=== PATIENT | female | born 1945 | race Caucasian/White ===

== ENCOUNTER 2018-06-12 22:21 | Emergency (ER) | payer MEDICARE, BC ==
[~2018-06-12] VITALS: Ht 160 cm; Wt 59.0 kg
[~2018-06-12 22:21] MED LIST: ADVAIR 250-501 EACH INH; ADVAIR HFA115 MCG/21 INH; ALBUTEROL INH; ALBUTEROL NEB; ALBUTEROL2.5 MG/0.5 INH; ALLEGRA ALLERG180 MG PO; ALLEGRA ALLERGY60 MG PO; APAP500 PO; ATORVASTATIN CA40 MG PO; AUGMENTIN 875875 MG PO; BUMETANIDE 1 MG1 M1 PO; CALCIUM + D SO1 EACH PO; CALCIUM + VITA1 EACH PO; CEFTIN 250 MG250 MG PO; COUMADIN 4 MG TA4 M1 PO; COUMADIN 5 MG TA5 M1 PO; DILTIAZEM 24HR120 M1 PO; DILTIAZEM ER360 MG; DILTIAZEM HCL120 M1 PO; DUONEB 2.5-0.5 M3 ML; DUONEB 2.5-0.5 M3 ML INH; FISH OIL 1,0001 EAC6 PO; FISH OIL 1,001000 M1 PO; FLONASE 0.05%50 MCG NASAL; FOSAMAX 70 MG T70 MG PO; FUROSEMIDE 40 M40 M1 PO; HYDROCHLOROTHIA25 M1 PO; IRON325 PO; K-DUR10 MEQ PO; LASIX 40 MG TAB40 M2 PO; LEVAQUIN 250 M250 MG PO; LEVAQUIN 500 M500 M2 PO; LISINOPRIL5 MG PO; MUCINEX TA600 MG/TA2 PO; MUCINEX600 MG PO; OMEGA-31000 M1 PO; POTASSIUM20 MEQ/15 PO; PREDNISONE 10 M10 M1 PO; PREDNISONE 10 M10 MG PO; PREDNISONE 20 M20 MG PO; PREDNISONE 5 MG5 M1; PROTONIX40 M1 PO; SIMVASTATIN40 MG; SINGULAIR 10 MG10 M1 PO; SPIRIVA INH; SYMBICORT160 MCG/4. INH; TRAMADOL 50 MG50 MG PO; VENTOLIN HFA INH8 GM INH; VITAMINC500 PO; ZITHROMAX250 MG NG; ZPAK PO
[2018-06-13] MEDS ORDERED: NORCO 5-325 TA1 EACH PO (00:06)
[2018-06-13 00:24] VITALS: BP 190/70
== END 2018-06-13 00:25 | disposition home or self-care (01) ==
LOC: M.ERS 22:21
DX: S42.291A Other displaced fracture of upper end of right humerus, initial encounter for closed fracture (principal); I10 Essential (primary) hypertension; J44.9 Chronic obstructive pulmonary disease, unspecified; Z90.49 Acquired absence of other specified parts of digestive tract; Z91.09 Other allergy status, other than to drugs and biological substances; Z87.891 Personal history of nicotine dependence; W01.0XXA Fall on same level from slipping, tripping and stumbling without subsequent striking against object, initial encounter; Y93.89 Activity, other specified; Y92.89 Other specified places as the place of occurrence of the external cause; Y99.8 Other external cause status

== ENCOUNTER 2018-06-17 04:13 | Inpatient (IN) | payer MEDICARE, BC ==
[~2018-06-17] VITALS: Ht 162.6 cm; Wt 61.2 kg
[~2018-06-17 04:13] MED LIST changes: +NORCO 5-325 TA1 EACH PO
[2018-06-17 04:19] VITALS: BP 156/58
[2018-06-17] MEDS ORDERED: SPIRIVA INH (04:30)
[2018-06-17] MEDS ORDERED: HIGH POTENCY I134 MG PO (04:31)
[2018-06-17 04:51] LABS: HEMATOCRIT 27.9 % (37.0-47.0); HEMOGLOBIN 9.4 gm/dL (12.0-15.0); MCH 31.5 pg (26.0-34.0); MCHC 33.8 g/dL (28.0-37.0); MCV 93.3 fL (80.0-100.0); MPV 7.8 fl. (7.2-11.1); NUCLEATED RBCS 0 /100WBC; PLATELET COUNT* 208 thou/uL (150-400); RBC 2.99 mil/uL (4.20-5.00); RDW-CV 14.7 % (10.5-14.5); WBC 12.7 thou/uL (4.0-11.0)
[2018-06-17 05:07] LABS: ANION GAP 7 mmol/L (7-16); BUN 18 mg/dL (7-18); CALCIUM 8.6 mg/dL (8.5-10.1); CHLORIDE 101 mmol/L (98-107); CO2 30 mmol/L (21-32); CREATININE 1.1 mg/dL (0.6-1.3); GLUCOSE 116 mg/dL (70-99); POTASSIUM 3.7 mmol/L (3.5-5.1); SODIUM 138 mmol/L (136-145)
[2018-06-17 05:08] LABS: PROTIME 10.6 Seconds (9.20-11.50)
[2018-06-17 05:17] LABS: ALBUMIN 2.9 g/dL (3.4-5.0); ALKALINE PHOSPHATASE 75 U/L (46-116); NT-PRO BRAIN NAT PEPTIDE 254 pg/mL (<300); SGOT 19 U/L (15-37); SGPT 24 U/L (30-65); TOTAL BILIRUBIN 0.5 mg/dL (<0.1-1.0); TOTAL PROTEIN 6.4 g/dL (6.4-8.2); TROPONIN-I LEVEL <0.06 ng/mL (<0.06)
[2018-06-17 06:31] LABS: ABSOLUTE LYMPHOCYTES 1.1 thou/uL (0.8-5.3); ABSOLUTE MONOCYTES 0.3 thou/uL (0.0-1.2); ABSOLUTE NEUTROPHILS 11.3 thou/uL (1.6-8.1); ATYPICAL LYMPHS 3 %; PLATELET ESTIMATE ADEQUATE
[2018-06-17 06:41] VITALS: BP 181/67
[2018-06-17 07:00] VITALS: BP 171/65
[2018-06-17 07:55] VITALS: BP 166/66
[2018-06-17 14:00] VITALS: BP 173/68
--- NOTE | 2018-06-17 17:09 | EKG ---
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 : 1945 Requested By: Daysi Solorio Order Number: [id number] MD: Chon Ghotra Measurements Intervals [place] Rate: 98 P: 79 VT: 167 QRS: 67 QRSD: 87 T: 65 QT: 347 QTc: 444 Interpretive Statements Sinus rhythm poor wave progression Left ventricular hypertrophy Compared to ECG 04/05/2016 01:14:20 Right ventricular hypertrophy now present Left ventricular hypertrophy now present Sinus tachycardia no longer present ST (T wave) deviation no longer present Electronically Signed On 06-17-2018 17:08:44 CDT by Chon Ghotra [email or web address] <ELECTRONICALLY SIGNED> By: Chon Ghotra MD, [facility] 06/17/18 1708 0428 0428 Chon Ghotra MD, [facility] /EPI
[2018-06-17 18:02] LABS: URINE BILIRUBIN NEGATIVE (Negative); URINE BLOOD TRACE (Negative); URINE CLARITY CLEAR; URINE COLOR YELLOW; URINE GLUCOSE-RANDOM NEGATIVE (Negative); URINE KETONES NEGATIVE (Negative); URINE LEUKOCYTES-REFLEX NEGATIVE (Negative); URINE NITRITE-REFLEX NEGATIVE (Negative); URINE PROTEIN NEGATIVE (Negative); URINE SPECIFIC GRAVITY <= 1.005 (1.005-1.030); URINE UROBILINOGEN 0.2 E.U./dl (0.2-1.0)
[2018-06-17 20:25] VITALS: BP 166/63
[2018-06-18 04:20] LABS: ABSOLUTE EOSINOPHILS 0.1 thou/uL (0.0-0.7); ABSOLUTE LYMPHOCYTES 1.1 thou/uL (0.8-5.3); BASOPHILS 0.3 %; EOSINOPHILS 0.7 %; HEMATOCRIT 26.5 % (37.0-47.0); LYMPHOCYTES 10.4 %; MCH 31.8 pg (26.0-34.0); MCHC 34.1 g/dL (28.0-37.0); MCV 93.3 fL (80.0-100.0); MPV 8.1 fl. (7.2-11.1); NUCLEATED RBCS 0 /100WBC; PLATELET COUNT* 189 thou/uL (150-400); POLYS 78.6 %; RBC 2.84 mil/uL (4.20-5.00); RDW-CV 14.5 % (10.5-14.5); WBC 10.1 thou/uL (4.0-11.0)
[2018-06-18 04:40] LABS: CALCIUM 7.9 mg/dL (8.5-10.1); CREATININE 0.9 mg/dL (0.6-1.3); POTASSIUM 3.4 mmol/L (3.5-5.1)
[2018-06-18 07:30] VITALS: BP 106/67
[2018-06-18 14:00] VITALS: BP 183/72
[2018-06-18 15:00] VITALS: BP 180/73
[2018-06-18 20:00] VITALS: BP 170/58
[2018-06-19 00:14] VITALS: BP 161/61
[2018-06-19 04:00] VITALS: BP 164/62
[2018-06-19 04:28] LABS: ABSOLUTE EOSINOPHILS 0.1 thou/uL (0.0-0.7); ABSOLUTE LYMPHOCYTES 0.9 thou/uL (0.8-5.3); ABSOLUTE MONOCYTES 0.8 thou/uL (0.0-1.2); BASOPHILS 0.6 %; EOSINOPHILS 1.1 %; HEMATOCRIT 26.5 % (37.0-47.0); MCH 31.9 pg (26.0-34.0); MCHC 33.9 g/dL (28.0-37.0); MCV 94.1 fL (80.0-100.0); MONOCYTES 9.9 %; NUCLEATED RBCS 0 /100WBC; PLATELET COUNT* 196 thou/uL (150-400); POLYS 77.4 %; RBC 2.82 mil/uL (4.20-5.00); RDW-CV 14.6 % (10.5-14.5); WBC 7.7 thou/uL (4.0-11.0)
[2018-06-19 04:37] LABS: ALBUMIN 2.2 g/dL (3.4-5.0); CALCIUM 8.1 mg/dL (8.5-10.1); CREATININE 0.9 mg/dL (0.6-1.3); POTASSIUM 3.6 mmol/L (3.5-5.1); TOTAL BILIRUBIN 0.5 mg/dL (<0.1-1.0); TOTAL PROTEIN 4.9 g/dL (6.4-8.2)
[2018-06-19 07:51] VITALS: BP 158/58
[2018-06-19] MEDS ORDERED: AUGMENTIN 875-1 EACH PO (10:52)
[2018-06-19] MEDS ORDERED: HYDROCODON-ACE1 EAC7 PO (10:54)
[2018-06-19 11:22] VITALS: BP 158/58
== END 2018-06-19 12:45 | disposition home health service (06) | DRG 542 ==
LOC: M.ERS 04:13 → M.ORTHSURG 06:29 → M.TBA-ER 06:29 → M.ORTHSURG 06:45
PROVIDERS: Emergency Medicine; Internal Medicine; ADMIT Internal Medicine
DX: M80.021A Age-related osteoporosis with current pathological fracture, right humerus, initial encounter for fracture (principal); J15.6 Pneumonia due to other Gram-negative bacteria; R65.10 Systemic inflammatory response syndrome (SIRS) of non-infectious origin without acute organ dysfunction; J98.11 Atelectasis; D62 Acute posthemorrhagic anemia; I10 Essential (primary) hypertension; J44.9 Chronic obstructive pulmonary disease, unspecified; W18.39XA Other fall on same level, initial encounter; Y93.89 Activity, other specified; Y92.89 Other specified places as the place of occurrence of the external cause; Y99.8 Other external cause status; Z87.891 Personal history of nicotine dependence; Z90.49 Acquired absence of other specified parts of digestive tract; Z99.81 Dependence on supplemental oxygen; Z86.711 Personal history of pulmonary embolism; Z79.51 Long term (current) use of inhaled steroids; Z79.899 Other long term (current) drug therapy; Z91.09 Other allergy status, other than to drugs and biological substances

== ENCOUNTER 2018-07-30 14:37 | Inpatient (IN) | payer MEDICARE, BC ==
[~2018-07-30] VITALS: Ht 162.6 cm; Wt 56.7 kg
--- NOTE | ~2018-07-30 | OP ---
[address] [address] OPERATIVE REPORT Name: KAMRON RIVERA Room: [address] IN M.R.#: [id number] Admission: 07/30/18 Attend Phys: Thea Bethea Discharge: Date of : 45 Report #: [id number] THIS REPORT FOR: //name// CC: Cohn Aleman DATE OF SERVICE: 08/01/2018 PREOPERATIVE DIAGNOSIS: Cholecystitis. POSTOPERATIVE DIAGNOSES: Cholecystitis and cholelithiasis. SURGEON: Andrew Albrecht DO ASSISTANTS: Rayshawn Montoya, PGY-3, Jamila Robison, PGY-1. OPERATION PERFORMED: Laparoscopic cholecystectomy. ANESTHESIA: GET. ESTIMATED BLOOD LOSS: 30 mL. SPECIMEN REMOVED: Gallbladder. COMPLICATIONS: None. INDICATIONS: The patient is a 73-year-old female that presented to the ED with complaints of right upper quadrant pain, nausea and vomiting. She was found to have a HIDA scan with an ejection fraction of the gallbladder 14% in February of last year. She continued to have postprandial pain that was now related to any kind of food intake. Ultrasound showed a gallbladder mass or debris that could represent sludge. She was informed of the risks and benefits of proceeding with laparoscopic cholecystectomy and decided to proceed preoperatively. Pulmonary was consulted to risk stratify the patient given her COPD and oxygen dependence. DESCRIPTION OF PROCEDURE: After informed consent was obtained, the patient was brought to the operating room and placed in the supine position. SCDs were applied. Preoperative antibiotics were given. General anesthesia was administered. The patient was prepped and draped in the usual sterile fashion. A surgical pause was held to confirm proper patient and procedure. A 2 cm vertical infraumbilical incision was made with an 11 blade. Dissection was carried down to the fascia using cautery. The fascia was incised with cautery and then elevated with 2 Kochers. A Raya was used to enter the peritoneum and 0 Vic[address] was used to place stay sutures on the superior and inferior aspects of the fascial incision. A 5 mm Denis trocar was then [place] [address] OPERATIVE REPORT Name: KAMRON RIVERA Room: [address] IN .R.#: [id number] Admission: 07/30/18 Attend Phys: Thea Bethea Discharge: Date of : 45 Report #: [id number] and the balloon was insufflated. The abdomen was then insufflated. The camera was introduced. The gallbladder was visualized. The patient was positioned head up and rotated to the left. A 5 mm epigastric port was introduced under direct visualization and then two right upper quadrant trocars were introduced under direct visualization. The gallbladder was then elevated. There were some adhesions to the omentum and to the stomach. These were taken down with a combination of [place] dissector and with cautery with care to stay high on the gallbladder and away from the stomach. Once these were down, the peritoneum overlying the lateral edge of the gallbladder was dissected and the peritoneum overlying the medial side was dissected. The cystic duct and cystic artery were carefully dissected. The common bile duct and common hepatic duct were easily visualized and the critical view of safety was confirmed with two and only two structures entering the gallbladder and the liver easily visible behind them. The cystic duct was doubly clipped proximal and singly clipped distal. The artery was clipped using Weck Hem-o-teresa clips on both the duct and the artery. These were then cut using laparoscopic scissors. Gallbladder was elevated and dissected free of the liver bed using cautery. Two small holes were placed in the gallbladder. The suction inspector floor sub assembly was used to suction the bile and debris including stones and irrigate. Once the gallbladder was completely free of the liver bed, it was placed in an EndoCatch bag. The liver bed was then carefully suctioned and cauterized to achieve hemostasis. This was deemed adequate. The right upper quadrant was then thoroughly irrigated and suctioned. The abdomen was then desufflated. All ports were removed under direct visualization. The gallbladder was removed in its EndoCatch bag through the umbilical port. The previous stay sutures were elevated. Two additional waxxzb-dx-xdsuj sutures with 0 Vicryl were placed at the fascia. The previous stay sutures were tied down. Skin at all 4 sites were closed with 4-0 Monocryl. Wounds were cleansed and dressed with Mastisol, Steri-Strips, and a Tegaderm with overlying pressure dressing. All counts were correct at the close of the case. The patient tolerated the procedure well and was transferred to the PACU and subsequently to the floor in stable condition. By: 1557 [id number] Montoya DO /ashleigh
[~2018-07-30 14:37] MED LIST changes: +AUGMENTIN 875-1 EACH PO; +HIGH POTENCY I134 MG PO; +HYDROCODON-ACE1 EAC7 PO
[2018-07-30 14:49] VITALS: BP 168/52
[2018-07-30 15:03] LABS: HEMATOCRIT 34.1 % (37.0-47.0); HEMOGLOBIN 11.5 gm/dL (12.0-15.0); MCH 30.1 pg (26.0-34.0); MCHC 33.7 g/dL (28.0-37.0); MCV 89.2 fL (80.0-100.0); MPV 7.7 fl. (7.2-11.1); NUCLEATED RBCS 0 /100WBC; PLATELET COUNT* 235 thou/uL (150-400); RBC 3.83 mil/uL (4.20-5.00); RDW-CV 14.7 % (10.5-14.5); WBC 9.8 thou/uL (4.0-11.0)
[2018-07-30 15:10] LABS: ANION GAP 5 mmol/L (7-16); BUN 22 mg/dL (7-18); CALCIUM 9.2 mg/dL (8.5-10.1); CHLORIDE 103 mmol/L (98-107); CO2 29 mmol/L (21-32); CREATININE 0.9 mg/dL (0.6-1.3); GLUCOSE 123 mg/dL (70-99); POTASSIUM 4.4 mmol/L (3.5-5.1); SODIUM 137 mmol/L (136-145)
[2018-07-30 15:16] LABS: URINE BILIRUBIN NEGATIVE (Negative); URINE BLOOD NEGATIVE (Negative); URINE CLARITY CLEAR; URINE COLOR YELLOW; URINE GLUCOSE-RANDOM NEGATIVE (Negative); URINE KETONES NEGATIVE (Negative); URINE LEUKOCYTES-REFLEX NEGATIVE (Negative); URINE NITRITE-REFLEX NEGATIVE (Negative); URINE PROTEIN NEGATIVE (Negative); URINE SPECIFIC GRAVITY 1.015 (1.005-1.030); URINE UROBILINOGEN 0.2 E.U./dl (0.2-1.0)
[2018-07-30 15:17] LABS: ALBUMIN 3.7 g/dL (3.4-5.0); ALKALINE PHOSPHATASE 84 U/L (46-116); LIPASE 156 U/L (73-393); SGOT 13 U/L (15-37); SGPT 18 U/L (30-65); TOTAL BILIRUBIN 0.3 mg/dL (<0.1-1.0); TOTAL PROTEIN 6.7 g/dL (6.4-8.2); TROPONIN-I LEVEL <0.06 ng/mL (<0.06)
[2018-07-30 15:40] LABS: ABSOLUTE EOSINOPHILS 0.1 thou/uL (0.0-0.7); ABSOLUTE LYMPHOCYTES 1.1 thou/uL (0.8-5.3); ABSOLUTE MONOCYTES 0.5 thou/uL (0.0-1.2); ABSOLUTE NEUTROPHILS 8.1 thou/uL (1.6-8.1); PLATELET ESTIMATE ADEQUATE
[2018-07-30 18:01] VITALS: BP 144/59
[2018-07-30 18:31] VITALS: BP 150/62
[2018-07-30 20:00] VITALS: BP 151/56
[2018-07-31 08:05] VITALS: BP 143/66
--- NOTE | 2018-07-31 12:35 | EKG ---
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1945 Requested By: Gilberto Mello Order Number: [id number] MD: Stewart Deleon Measurements Intervals [place] Rate: 64 P: 68 [place]: 175 QRS: 44 QRSD: 86 T: 52 QT: 404 QTc: 417 Interpretive Statements Sinus rhythm Probable anterior infarct, old Compared to ECG 06/17/2018 04:28:57 Myocardial infarct finding now present Left ventricular hypertrophy no longer present Electronically Signed On 07-31-2018 12:35:35 CDT by Stewart Deleon [email or web address] <ELECTRONICALLY SIGNED> By: Stewart Deleon MD, FACC 07/31/18 1235 1458 1458 Stewart Deleon MD, [facility] /EPI
[2018-07-31 17:49] VITALS: BP 139/60
[2018-07-31 20:30] VITALS: BP 155/53
[2018-08-01 04:20] LABS: ABSOLUTE EOSINOPHILS 0.1 thou/uL (0.0-0.7); ABSOLUTE LYMPHOCYTES 1.3 thou/uL (0.8-5.3); ABSOLUTE MONOCYTES 0.5 thou/uL (0.0-1.2); ABSOLUTE NEUTROPHILS 3.3 thou/uL (1.6-8.1); BASOPHILS 0.9 %; EOSINOPHILS 1.5 %; HEMATOCRIT 30.8 % (37.0-47.0); HEMOGLOBIN 10.4 gm/dL (12.0-15.0); MCH 30.5 pg (26.0-34.0); MCHC 33.7 g/dL (28.0-37.0); MCV 90.5 fL (80.0-100.0); MONOCYTES 9.5 %; MPV 8.1 fl. (7.2-11.1); NUCLEATED RBCS 0 /100WBC; PLATELET COUNT* 190 thou/uL (150-400); POLYS 63.1 %; RDW-CV 14.5 % (10.5-14.5); WBC 5.2 thou/uL (4.0-11.0)
[2018-08-01 04:31] LABS: ALBUMIN 2.8 g/dL (3.4-5.0); CALCIUM 7.9 mg/dL (8.5-10.1); CREATININE 0.9 mg/dL (0.6-1.3); POTASSIUM 3.3 mmol/L (3.5-5.1); TOTAL BILIRUBIN 0.3 mg/dL (<0.1-1.0)
[2018-08-01 05:20] LABS: ESR (SEDRATE) 3 mm/hr (0-30)
[2018-08-01 08:10] VITALS: BP 154/64
[2018-08-01 09:20] LABS: PCO2 41.5 mmHg (35.0-45.0); pH 7.415 (7.340-7.450)
[2018-08-01 09:21] LABS: BE 1.3 mmol/L (-2 to +3)
[2018-08-01 12:05] VITALS: BP 154/54
[2018-08-01 17:30] VITALS: BP 173/65
[2018-08-01 21:00] VITALS: BP 145/62
[2018-08-02] VITALS: BP 152/60
[2018-08-02 04:00] VITALS: BP 160/65
[2018-08-02 05:13] LABS: HEMATOCRIT 35.6 % (37.0-47.0); HEMOGLOBIN 11.9 gm/dL (12.0-15.0); MCH 30.1 pg (26.0-34.0); MCHC 33.4 g/dL (28.0-37.0); MPV 8.7 fl. (7.2-11.1); RBC 3.96 mil/uL (4.20-5.00); RDW-CV 14.7 % (10.5-14.5); WBC 9.3 thou/uL (4.0-11.0)
[2018-08-02 05:24] LABS: ALBUMIN 3.2 g/dL (3.4-5.0); CALCIUM 8.4 mg/dL (8.5-10.1); CREATININE 0.9 mg/dL (0.6-1.3); POTASSIUM 3.9 mmol/L (3.5-5.1); TOTAL BILIRUBIN 0.4 mg/dL (<0.1-1.0); TOTAL PROTEIN 6.1 g/dL (6.4-8.2)
[2018-08-02 08:00] VITALS: BP 152/68
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
[2018-08-02 16:17] VITALS: BP 132/50
[2018-08-02 19:45] VITALS: BP 142/52
[2018-08-03] VITALS: BP 132/85
[2018-08-03 04:00] VITALS: BP 130/48
[2018-08-03 05:25] VITALS: BP 143/49
[2018-08-03 06:04] LABS: HEMATOCRIT 29.2 % (37.0-47.0); MCH 30.1 pg (26.0-34.0); MCHC 33.7 g/dL (28.0-37.0); MCV 89.3 fL (80.0-100.0); MPV 7.9 fl. (7.2-11.1); RBC 3.27 mil/uL (4.20-5.00); RDW-CV 14.8 % (10.5-14.5)
[2018-08-03 06:17] LABS: ALBUMIN 2.9 g/dL (3.4-5.0); CALCIUM 7.9 mg/dL (8.5-10.1); CREATININE 0.9 mg/dL (0.6-1.3); HEMOGLOBIN 9.8 gm/dL (12.0-15.0); MAGNESIUM 2.2 mg/dL (1.8-2.4); PHOSPHORUS* 2.8 mg/dL (2.5-4.9); POTASSIUM 3.8 mmol/L (3.5-5.1); TOTAL BILIRUBIN 0.3 mg/dL (<0.1-1.0); TOTAL PROTEIN 5.5 g/dL (6.4-8.2)
[2018-08-03 07:53] VITALS: BP 133/51
[2018-08-03 16:52] VITALS: BP 145/53
[2018-08-03 20:20] VITALS: BP 148/49
[2018-08-04] VITALS (7 sets, daily range): BP systolic 133–167; BP diastolic 47–66
[2018-08-04 04:52] LABS: HEMOGLOBIN 10.1 gm/dL (12.0-15.0); MCH 30.1 pg (26.0-34.0); MCHC 33.6 g/dL (28.0-37.0); MCV 89.5 fL (80.0-100.0); MPV 8.5 fl. (7.2-11.1); RBC 3.35 mil/uL (4.20-5.00); RDW-CV 14.9 % (10.5-14.5); WBC 8.5 thou/uL (4.0-11.0)
[2018-08-04 05:12] LABS: CALCIUM 8.4 mg/dL (8.5-10.1); CREATININE 0.8 mg/dL (0.6-1.3); MAGNESIUM 2.5 mg/dL (1.8-2.4); PHOSPHORUS* 2.4 mg/dL (2.5-4.9); POTASSIUM 3.9 mmol/L (3.5-5.1)
[2018-08-05] VITALS: BP 170/68
[2018-08-05 04:09] VITALS: BP 136/52
[2018-08-05 07:33] VITALS: BP 156/63
[2018-08-05 11:46] VITALS: BP 158/63
--- NOTE | 2018-08-06 15:07 | PATH ---
[facility] [address] [place] [address] PATHOLOGY RPT PROCEDURE Name: KAMRON RIVERA Room: [address] IN M.R.#: [id number] Admission: 07/30/18 Date of : 45 Discharge: 08/05/18 Report #: [id number] Path Case #: [id number] [facility] Accession Number: [id number] . 01 Material submitted: . GALLBLADDER . 01 Clinician provided ICD-10: R10.9 . 01 Clinical history: . Abdominal pain . 02 Diagnosis: Gallbladder: - Chronic cholecystitis. . (DANITA:vjm;08/05/2018) AGA/08/05/2018 . 02 Electronically signed: . Adrian Low MD, Pathologist NPI- [id number] . 01 Gross description: . The specimen is received in formalin, labeled "Kamron Luis Eduardo, gallbladder". Received is a previously punctured gallbladder measuring 6.8 x 3.1 x 2.2 cm in greatest dimensions, displaying silvestre-villegas serosal surfaces. Opening the gallbladder reveals a velvety, bile-stained mucosa with the gallbladder wall thickness of 0.1 cm. The gallbladder lumen is filled with bile-stained mucoid material admixed with a slight amount of possible sludge. Calculi are not present and no masses or lesions are noted grossly. Attenuator sections, to include the proximal margin, are submitted in cassette A1. (CAA; 08/04/2018) QAC/QAC . 02 Pathologist provided ICD-10: K81.1 . 02 CPT . 147616 Specimen Comment: A courtesy copy of this report has been sent to Specimen Comment: [phone], , . Specimen Comment: Report sent to ,DR CH / DR SAUL Specimen Comment: A duplicate report has been generated due to demographic updates. Performed at: [address] [place] [address] PATHOLOGY RPT PROCEDURE Name: LUIS EDUARDOKAMRON CHRISTEN Room: [address] IN [facility].#: [id number] Admission: 07/30/18 Date of : 45 Discharge: 08/05/18 Report #: [id number] Path Case #: [id number] [facility] Sussy Richardson [address] [place] [address] [address], [place], [place] [id number] MD Ayo Diaz MD Phone: [phone] Performed at: [address] [address] [address], [place], [place] [id number] MD Adrian Low MD Phone: [phone]
--- NOTE | 2018-08-11 12:22 | CON ---
[address] [address] CONSULTATION Name: KAMRON RIVERA Room: [address] IN M.R.#: [id number] Admission: 07/30/18 Attend Phys: Thea Bethea Discharge: 08/05/18 Date of : 45 Report #: [id number] THIS REPORT FOR: //name// CC: Bishop Aleman MD DATE OF SERVICE: 07/31/2018 REFERRING PHYSICIAN: Jessica Aleman MD REASON FOR CONSULTATION: Abdominal pain. IMPRESSION: 1. Chronic right upper quadrant pain, most compatible with biliary tract disease -- the patient had an abdominal ultrasound, which is abnormal plus had low gallbladder ejection fraction. 2. Abnormal abdominal ultrasound revealing sludge (most likely) versus mass (less likely) within the gallbladder. 3. Chronic obstructive pulmonary disease, which is steroid and oxygen dependent. 4. Chronic anemia without any upper or lower gastrointestinal tract complaints. RECOMMENDATIONS: 1. Agree with surgical consultation for possible laparoscopic cholecystectomy when she has been cleared by Pulmonary for the same. She has already done everything, but she cannot keep from having pain from her gallbladder, bridging a low fat diet, and she is still symptomatic from the same. 2. I do not feel that she needs an upper or lower endoscopy preoperatively at this time. 3. We will check labs for her anemia. 4. We will attempt to have the patient try a low fat diet. If she tolerates it without worsening abdominal pain, she can be evaluated by Dr. Zavala's group for her pulmonary clearance, but if, however, she has postprandial pain, which has simply just brought her into the hospital. She will need to stay in the hospital for pulmonary clearance prior to her laparoscopic cholecystectomy. At the present time, we will just be available as needed. HISTORY OF PRESENT ILLNESS: The patient is a pleasant 73-year-old white female who has had some problem with persistent right upper quadrant pain, which has been off and on since last year. She was found to have a low gallbladder ejection fraction, has done everything she can to avoid having problems related to the same. However, she has now been eating just very bland foods and is still having issues with pain postprandially. [place] [address] CONSULTATION Name: KAMORN RIVERA Room: [address] IN [facility].#: [id number] Admission: 07/30/18 Attend Phys: Thea Bethea Discharge: 08/05/18 Date of : 45 Report #: [id number] dysphagia, odynophagia, chronic reflux or indigestion. She denies problem with her bowels or bowel frequency. She has lost weight because she is eating healthy. She is admitted to hospital for further evaluation and treatment. It should be noted the patient does have bad COPD, which is oxygen dependent and steroid dependent; of course she uses 4 liters of oxygen at home at all time. ALLERGIES: DUST, MOLD AND POLLEN. MEDICATIONS: Include lisinopril, vitamin C, Tylenol, albuterol inhaler, Bumex, Fosamax, Advair, Haritha, hydrocodone, diltiazem, calcium with vitamin D, atorvastatin and DuoNebs. PAST MEDICAL HISTORY: Hypertension, COPD, which is oxygen and steroid dependent, problems with chronic kidney issues and chronic anemia. She has had previous appendectomy. She has had problem with bronchitis and pulmonary embolus in the past. SOCIAL HISTORY: The patient states she previously smoked. Occasionally drinks alcohol. FAMILY HISTORY: Negative. PHYSICAL EXAMINATION: GENERAL: Pleasant 73-year-old white female who is awake and alert. CARDIOPULMONARY EXAMINATION: Revealed a regular rhythm. LUNGS: She has diminished breath sounds. ABDOMEN: Her abdomen is soft. She is tender in the right upper quadrant. No rebound or guarding noted. LABORATORY DATA: Revealed a white count 9.8, hemoglobin 11.5, platelet count 235,000, MCV is 89.2 and RDW 14.7. His sodium is 137, potassium 4.4, chloride 103, bicarbonate is 25, her BUN 22, creatinine 0.9, her GFR 61. Total bilirubin 0.3, alkaline phosphatase 84, AST is 13, ALT 18. Her albumin is 3.7. Lipase is 156. The patient underwent a full CT scan of the abdomen and pelvis on the 07/30/2018, which was reviewed. She has a cyst noted within the liver, which have been stable. The remainder of the exam was unremarkable. Abdominal ultrasound performed on 07/31/2018 revealed soft tissue density, possibly somewhat irregular mass noted within the dependent portions of the gallbladder. It fails to reveal any internal blood flow, measures 0.8 to 1.2 cm. There are no shadowing or definite calcifications. The bile duct is 3 mm. Hepatobiliary scan from 02/2017 revealed a gallbladder ejection fraction of only [facility] [address] [place] [address] CONSULTATION Name: KAMRON RIEVRA Room: [address] IN M.R.#: [id number] Admission: 07/30/18 Attend Phys: Jessica SamaniegoaSscha Love Thea Discharge: 08/05/18 Date of : 45 Report #: [id number] 14%. DISCUSSION: At the present time, the patient had some problems with persistent right upper quadrant pain, which is associated with eating. I explained this is all related to biliary tract disease and she is here to gallbladder taken out as soon as she is okay from a pulmonary standpoint for the same. We will hold off on any endoscopic studies. We will be available for any problems. I discussed this plan with the patient as well and she is agreeable to the same. <ELECTRONICALLY SIGNED> By: Hiram Puckett DO 08/11/18 1222 1538 1719Hiram Puckett DO /nt
== END 2018-08-05 12:32 | disposition home health service (06) | DRG 418 ==
LOC: M.ERS 14:37 → M.3W 16:38 → M.TBA-ER 16:38 → M.3W 18:00
PROVIDERS: Family Medicine; Internal Medicine; Internal Medicine Gastroenterology; Internal Medicine Pulmonary Disease; Surgery; ADMIT Internal Medicine
PROC: 0FT44ZZ Resection of Gallbladder, Percutaneous Endoscopic Approach (ICD-10-PCS; principal; 2018-08-01)
DX: K80.64 Calculus of gallbladder and bile duct with chronic cholecystitis without obstruction (principal); J96.10 Chronic respiratory failure, unspecified whether with hypoxia or hypercapnia; K56.7 Ileus, unspecified; J44.9 Chronic obstructive pulmonary disease, unspecified; I10 Essential (primary) hypertension; E78.5 Hyperlipidemia, unspecified; Z86.711 Personal history of pulmonary embolism; Z99.81 Dependence on supplemental oxygen; Z87.81 Personal history of (healed) traumatic fracture; Z87.01 Personal history of pneumonia (recurrent); Z90.49 Acquired absence of other specified parts of digestive tract; Z87.891 Personal history of nicotine dependence; Z79.51 Long term (current) use of inhaled steroids; Z79.899 Other long term (current) drug therapy; Z91.048 Other nonmedicinal substance allergy status; Z82.5 Family history of asthma and other chronic lower respiratory diseases; Z83.3 Family history of diabetes mellitus; Z82.49 Family history of ischemic heart disease and other diseases of the circulatory system; Z81.8 Family history of other mental and behavioral disorders; Z80.0 Family history of malignant neoplasm of digestive organs

== ENCOUNTER → 2018-09-12 | Outpatient (CLI) | payer MEDICARE, BC | LOC: M.CT 13:46 | DX: I70.0 Atherosclerosis of aorta (principal); K82.9 Disease of gallbladder, unspecified; R10.9 Unspecified abdominal pain; R10.2 Pelvic and perineal pain ==

== ENCOUNTER → 2018-09-17 | Outpatient (CLI) | payer MEDICARE, BC ==
[~2018-09-17] MED LIST changes: +PLAVIX 75 MG TA75 M1 PO
[2018-09-17 10:23] VITALS: BP 139/53
== END | disposition home or self-care (01) ==
LOC: M.INT 10:06
DX: R10.9 Unspecified abdominal pain (principal); J44.9 Chronic obstructive pulmonary disease, unspecified; I70.1 Atherosclerosis of renal artery; Z91.09 Other allergy status, other than to drugs and biological substances; Z90.49 Acquired absence of other specified parts of digestive tract; Z79.899 Other long term (current) drug therapy; Z90.89 Acquired absence of other organs

== ENCOUNTER 2018-09-24 17:11 | Inpatient (IN) | payer MEDICARE, BC ==
[~2018-09-24] VITALS: Ht 162.6 cm; Wt 55.8 kg
[2018-09-24 18:08] LABS: HEMATOCRIT 27.8 % (37.0-47.0); MCH 29.9 pg (26.0-34.0); MCHC 33.9 g/dL (28.0-37.0); MCV 88.1 fL (80.0-100.0); MPV 7.9 fl. (7.2-11.1); NUCLEATED RBCS 0 /100WBC; PLATELET COUNT* 246 thou/uL (150-400); RBC 3.15 mil/uL (4.20-5.00); RDW-CV 15.9 % (10.5-14.5); WBC 9.5 thou/uL (4.0-11.0)
[2018-09-24 18:13] LABS: HEMOGLOBIN 9.4 gm/dL (12.0-15.0)
[2018-09-24 18:19] LABS: ANION GAP 8 mmol/L (7-16); BUN 55 mg/dL (7-18); CALCIUM 9.1 mg/dL (8.5-10.1); CHLORIDE 105 mmol/L (98-107); CO2 28 mmol/L (21-32); CREATININE 1.4 mg/dL (0.6-1.3); GLUCOSE 99 mg/dL (70-99); POTASSIUM 4.7 mmol/L (3.5-5.1); SODIUM 141 mmol/L (136-145)
[2018-09-24 18:25] LABS: ALBUMIN 2.9 g/dL (3.4-5.0); ALKALINE PHOSPHATASE 56 U/L (46-116); SGOT 7 U/L (15-37); SGPT 12 U/L (30-65); TOTAL BILIRUBIN 0.3 mg/dL (<0.1-1.0); TOTAL PROTEIN 5.4 g/dL (6.4-8.2); TROPONIN-I LEVEL <0.06 ng/mL (<0.06)
[2018-09-24 18:48] LABS: ABSOLUTE LYMPHOCYTES 0.5 thou/uL (0.8-5.3); ABSOLUTE MONOCYTES 0.2 thou/uL (0.0-1.2); ABSOLUTE NEUTROPHILS 8.8 thou/uL (1.6-8.1); PLATELET ESTIMATE ADEQUATE
[2018-09-24 19:21] LABS: APTT 22.9 Seconds (25.0-31.3); INR 1.1; PROTIME 10.8 Seconds (9.20-11.50)
[2018-09-24 20:50] VITALS: BP 142/64
[2018-09-24 21:29] VITALS: BP 137/61
[2018-09-25] VITALS: BP 118/61
[2018-09-25 04:00] VITALS: BP 137/68
[2018-09-25 07:00] VITALS: BP 127/64
[2018-09-25 11:28] LABS: ABSOLUTE LYMPHOCYTES 0.3 thou/uL (0.8-5.3); ABSOLUTE MONOCYTES 0.1 thou/uL (0.0-1.2); ABSOLUTE NEUTROPHILS 6.2 thou/uL (1.6-8.1); BASOPHILS 0.1 %; HEMATOCRIT 23.8 % (37.0-47.0); HEMOGLOBIN 8.1 gm/dL (12.0-15.0); LYMPHOCYTES 4.1 %; MCH 30.1 pg (26.0-34.0); MCV 88.7 fL (80.0-100.0); MONOCYTES 1.1 %; MPV 7.9 fl. (7.2-11.1); NUCLEATED RBCS 0 /100WBC; PLATELET COUNT* 216 thou/uL (150-400); POLYS 94.7 %; RBC 2.69 mil/uL (4.20-5.00); RDW-CV 16.2 % (10.5-14.5); WBC 6.6 thou/uL (4.0-11.0)
[2018-09-25 11:38] VITALS: BP 118/54
[2018-09-25 12:07] LABS: CALCIUM 8.7 mg/dL (8.5-10.1); CREATININE 1.2 mg/dL (0.6-1.3); POTASSIUM 4.1 mmol/L (3.5-5.1)
[2018-09-25 15:45] VITALS: BP 127/66
[2018-09-25 20:00] VITALS: BP 133/78
[2018-09-26] VITALS (11 sets, daily range): BP systolic 132–163; BP diastolic 52–67
[2018-09-26 04:58] LABS: MCH 29.9 pg (26.0-34.0); MCV 87.9 fL (80.0-100.0); MPV 8.1 fl. (7.2-11.1); RBC 2.28 mil/uL (4.20-5.00); RDW-CV 16.2 % (10.5-14.5); WBC 9.5 thou/uL (4.0-11.0)
[2018-09-26 05:11] LABS: ALBUMIN 2.8 g/dL (3.4-5.0); CALCIUM 8.9 mg/dL (8.5-10.1); CREATININE 1.1 mg/dL (0.6-1.3); MAGNESIUM 2.3 mg/dL (1.8-2.4); POTASSIUM 4.1 mmol/L (3.5-5.1); TOTAL BILIRUBIN 0.2 mg/dL (<0.1-1.0); TOTAL PROTEIN 4.8 g/dL (6.4-8.2)
[2018-09-26 05:14] LABS: HEMOGLOBIN 6.8 gm/dL (12.0-15.0)
[2018-09-27] VITALS (7 sets, daily range): BP systolic 148–163; BP diastolic 59–68
[2018-09-27 02:46] LABS: HEMATOCRIT 27.2 % (37.0-47.0); HEMOGLOBIN 9.5 gm/dL (12.0-15.0)
[2018-09-28] VITALS: BP 156/61
[2018-09-28 04:00] VITALS: BP 151/64
[2018-09-28 05:23] LABS: HEMATOCRIT 26.9 % (37.0-47.0); HEMOGLOBIN 9.2 gm/dL (12.0-15.0); MCH 30.6 pg (26.0-34.0); MCHC 34.4 g/dL (28.0-37.0); MPV 8.4 fl. (7.2-11.1); RBC 3.02 mil/uL (4.20-5.00); RDW-CV 15.4 % (10.5-14.5)
[2018-09-28 05:44] LABS: CALCIUM 8.5 mg/dL (8.5-10.1); CREATININE 0.9 mg/dL (0.6-1.3); MAGNESIUM 2.2 mg/dL (1.8-2.4); POTASSIUM 3.7 mmol/L (3.5-5.1)
[2018-09-28 07:28] VITALS: BP 151/64
[2018-09-28 08:00] VITALS: BP 157/65
[2018-09-28] MEDS ORDERED: PLAVIX 75 MG TA75 M1 PO (11:10)
[2018-09-28] MEDS ORDERED: BENZONATATE100 MG PO (11:10)
[2018-09-28] MEDS ORDERED: LEVAQUIN 500 M500 M2 PO (11:10)
[2018-09-28] MEDS ORDERED: PREDNISONE 10 M10 M1 PO (11:10)
[2018-09-28 11:29] VITALS: BP 157/65
== END 2018-09-28 13:30 | disposition home or self-care (01) | DRG 682 ==
LOC: M.ERS 17:11 → M.2W 19:31 → M.TBA-ER 19:31 → M.2W 20:24
PROVIDERS: Internal Medicine; Physician Assistant; ADMIT Internal Medicine
PROC: 30233N1 Transfusion of Nonautologous Red Blood Cells into Peripheral Vein, Percutaneous Approach (ICD-10-PCS; principal; 2018-09-26)
PROC: 0D598ZZ Destruction of Duodenum, Via Natural or Artificial Opening Endoscopic (ICD-10-PCS; 2018-09-28)
DX: N17.9 Acute kidney failure, unspecified (principal); J96.01 Acute respiratory failure with hypoxia; L76.32 Postprocedural hematoma of skin and subcutaneous tissue following other procedure; J44.1 Chronic obstructive pulmonary disease with (acute) exacerbation; I10 Essential (primary) hypertension; I70.1 Atherosclerosis of renal artery; I77.1 Stricture of artery; D64.9 Anemia, unspecified; K31.819 Angiodysplasia of stomach and duodenum without bleeding; S40.022A Contusion of left upper arm, initial encounter; K44.9 Diaphragmatic hernia without obstruction or gangrene; Z86.711 Personal history of pulmonary embolism; Z90.49 Acquired absence of other specified parts of digestive tract; Z91.09 Other allergy status, other than to drugs and biological substances; Z87.891 Personal history of nicotine dependence; Z95.820 Peripheral vascular angioplasty status with implants and grafts; Z99.81 Dependence on supplemental oxygen; X58.XXXA Exposure to other specified factors, initial encounter; Y93.89 Activity, other specified; Y92.89 Other specified places as the place of occurrence of the external cause; Y99.8 Other external cause status; Y83.8 Other surgical procedures as the cause of abnormal reaction of the patient, or of later complication, without mention of misadventure at the time of the procedure

== ENCOUNTER 2018-10-12 19:14 | Inpatient (IN) | payer MEDICARE, BC ==
[~2018-10-12] VITALS: Ht 162.6 cm; Wt 56.0 kg
[~2018-10-12 19:14] MED LIST changes: -APAP500 PO; +BENZONATATE100 MG PO; +TYLENOL EXTRA500 MG PO
[2018-10-12 19:20] VITALS: BP 120/54
[2018-10-12 20:00] LABS: ABSOLUTE LYMPHOCYTES 1.1 thou/uL (0.8-5.3); ABSOLUTE MONOCYTES 0.8 thou/uL (0.0-1.2); ABSOLUTE NEUTROPHILS 8.1 thou/uL (1.6-8.1); BASOPHILS 0.4 %; EOSINOPHILS 0.2 %; HEMATOCRIT 22.5 % (37.0-47.0); HEMOGLOBIN 7.4 gm/dL (12.0-15.0); LYMPHOCYTES 10.6 %; MCH 31.3 pg (26.0-34.0); MCHC 32.9 g/dL (28.0-37.0); MCV 94.9 fL (80.0-100.0); MONOCYTES 8.2 %; MPV 7.7 fl. (7.2-11.1); NUCLEATED RBCS 0 /100WBC; PLATELET COUNT* 185 thou/uL (150-400); POLYS 80.6 %; RBC 2.37 mil/uL (4.20-5.00); RDW-CV 18.6 % (10.5-14.5); WBC 10.1 thou/uL (4.0-11.0)
[2018-10-12 20:06] LABS: PROTIME 10.7 Seconds (9.20-11.50)
[2018-10-12 20:07] LABS: ANION GAP 8 mmol/L (7-16); BUN 70 mg/dL (7-18); CALCIUM 8.5 mg/dL (8.5-10.1); CHLORIDE 105 mmol/L (98-107); CO2 31 mmol/L (21-32); CREATININE 1.3 mg/dL (0.6-1.3); GLUCOSE 115 mg/dL (70-99); POTASSIUM 4.9 mmol/L (3.5-5.1); SODIUM 144 mmol/L (136-145)
[2018-10-12 20:17] LABS: ALBUMIN 2.6 g/dL (3.4-5.0); ALKALINE PHOSPHATASE 55 U/L (46-116); LIPASE 186 U/L (73-393); NT-PRO BRAIN NAT PEPTIDE 325 pg/mL (<300); SGOT 12 U/L (15-37); SGPT 39 U/L (30-65); TOTAL BILIRUBIN 0.2 mg/dL (<0.1-1.0); TOTAL PROTEIN 5.2 g/dL (6.4-8.2); TROPONIN-I LEVEL <0.06 ng/mL (<0.06)
[2018-10-12 21:11] VITALS: BP 107/50
[2018-10-12 23:00] VITALS: BP 108/43
[2018-10-12 23:30] VITALS: BP 108/43; BP 117/48; BP 119/51; BP 125/52
[2018-10-13 02:15] VITALS: BP 118/73; BP 129/55; BP 146/58; BP 150/65
[2018-10-13 04:00] VITALS: BP 129/55
--- NOTE | 2018-10-13 04:07 | NUR ---
ASSUMED PT CARE AT AROUND 2210. ASSESSMENT COMPLETED CHARTED. PT SON AND DAUGHTER IN LAW IN ROOM WITH PT. PT SIGNED ALL PAPERWORK, UP WITH SBA, NO C/O PAIN OR DISCOMFORT JUST STATES SHE DOESNT FEEL GOOD. STARTED INFUSING BLOOD AROUND 2344 AND INFUSING SECOND BAG NOW. PT RESTING IN BED AND STATES SHE FEELS BETTER. WILL CONTINUE TO MONITOR.
[2018-10-13 06:52] LABS: HEMATOCRIT 23.7 % (37.0-47.0); HEMOGLOBIN 8.2 gm/dL (12.0-15.0)
[2018-10-13 09:50] VITALS: BP 128/53
[2018-10-13 11:15] LABS: % SATURATION 92 % (20-39); IRON 172 ug/dL (50-175)
[2018-10-13 12:28] VITALS: BP 104/68
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
--- NOTE | 2018-10-13 16:27 | EKG ---
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1945 Requested By: Aldo Burr Order Number: [id number] MD: Brandon Jennings Measurements Intervals [place] Rate: 108 P: 72 [place]: 137 QRS: 48 QRSD: 80 T: 61 QT: 329 QTc: 441 Interpretive Statements Sinus tachycardia Artifact in lead(s) I,II,III,aVR,aVL,aVF Compared to ECG 09/24/2018 17:47:13 Sinus rate has increased Electronically Signed On 10-13-2018 16:26:51 UROLOGIST PHYSICIAN by Brandon Jennings [email or web address] <ELECTRONICALLY SIGNED> By: Brandon Jennings MD, FACC 10/13/18 1626 192 [id number] Brandon Jennings MD, [facility] /EPI
[2018-10-13 16:56] VITALS: BP 140/72
--- NOTE | 2018-10-13 17:02 | 2DMMODE ---
[place] [address] 2 D/M-MODE ECHOCARDIOGRAM Name: KAMRON RIVERA Room: [address] IN [facility]#: [id number] Admission: 10/12/18 Attend Phys: Maggie Taylor, Discharge: Date of : 45 Date of Service: 10/13/18 1701 Report #: [id number] THIS REPORT FOR: //name// APPROVED REPORT Study performed: 10/13/2018 15:29:29 EXAM: Comprehensive 2D, Doppler, and color-flow Echocardiogram Patient Location: In-Patient Room #: [id number] BSA: 1.59 HR: 77 bpm Other Information Study Quality: Good Indications Dyspnea 2D Dimensions IVSd: 13.83 (7-11mm) LVOT Diam: 20.81 (18-24mm) LVDd: 44.08 mm PWd: 13.63 (7-11mm) Ascending Ao: 27.52 (22-36mm) LVDs: 25.72 (25-40mm) Aortic Root: 30.67 mm Volumes Left Atrial Volume (Systole) LA ESV Index: 12.90 mL/m2 Aortic Valve AoV Peak Khalif.: 1.20 m/s AO Peak Gr.: 5.74 mmHg LVOT Max P.95 mmHg AO Mean Gr.: 3.32 mmHg LVOT Mean P.71 mmHg LVOT Max V: 0.99 m/s AO V2 VTI: 23.62 cm LVOT Mean V: 0.59 m/s EYAL (VTI): 2.97 cm2 LVOT V1 VTI: 20.61 cm Mitral Valve E/A Ratio: 0.59 MV Decel. Time: 227.91 ms MV E Max Khalif.: 0.67 m/s MV PHT: 66.09 [place] [address] 2 D/M-MODE ECHOCARDIOGRAM Name: KAMRON RIVERA Room: [address] IN ..#: [id number] Admission: 10/12/18 Attend Phys: Maggie Taylor, Discharge: Date of : 45 Date of Service: 10/13/18 1701 Report #: [id number] MVA (PHT): 3.33 cm2 TDI E/Lateral E': 6.09 E/Medial E': 8.38 Medial E' Khalif.: 0.08 m/s Lateral E' Khalif.: 0.11 m/s Pulmonary Valve PV Peak Khalif.: 1.09 m/s PV Peak Gr.: 4.76 mmHg Tricuspid Valve RAP Estimate: 5.00 mmHg TR Peak Gr.: 22.95 mmHg RVSP: 27.95 mmHg PA Pressure: 27.95 mmHg Left Ventricle The left ventricle is normal size. There is normal LV segmental wall motion. Mild concentric left ventricular hypertrophy. Left ventricular systolic function is normal. LVEF is 60-65%. Grade I - abnormal relaxation pattern. Right Ventricle The right ventricle is normal size. The right ventricular systolic function is normal. Atria The left atrium size is normal. The right atrium size is normal. Aortic Valve Aortic valve is mildly calcified. Trace aortic regurgitation. There is no aortic valvular stenosis. Mitral Valve The mitral valve is normal in structure. There is no mitral valve regurgitation noted. No evidence of mitral valve stenosis. Tricuspid Valve The tricuspid valve is normal in structure. Mild tricuspid regurgitation. The RVSP is 30-35 mmHg. Pulmonic Valve The pulmonary valve is normal in structure. There is no pulmonic valvular regurgitation[place] [address] 2 D/M-MODE ECHOCARDIOGRAM Name: KAMRON RIVERA Room: [address] IN [facility]#: [id number] Admission: 10/12/18 Attend Phys: Maggie Taylor, Discharge: Date of : 45 Date of Service: 10/13/18 1701 Report #: [id number] The aortic root is normal in size. IVC is normal in size and collapses >50% with inspiration. Pericardium There is no pericardial effusion. <Conclusion> The left ventricle is normal size. Mild concentric left ventricular hypertrophy. Left ventricular systolic function is normal. LVEF is 60-65%. Grade I - abnormal relaxation pattern. Aortic valve is mildly calcified. There is no aortic valvular stenosis. Mild tricuspid regurgitation. The RVSP is 30-35 mmHg. IVC is normal in size and collapses >50% with inspiration. <ELECTRONICALLY SIGNED> By: Pasquale Leal MD, FACC 10/13/181700 00 00 Pasquale Leal MD, FACC /INF
[2018-10-13 19:40] VITALS: BP 126/61
[2018-10-14] VITALS: BP 138/51
[2018-10-14 02:07] LABS: IgM 51 mg/dL (26-217)
[2018-10-14 04:00] VITALS: BP 125/57
[2018-10-14 05:11] LABS: IgA 21 mg/dL (64-422); IgG 174 mg/dL (700-1600)
--- NOTE | 2018-10-14 06:17 | NUR ---
VITALS WNL. SEE MAR. SEE CHARTING. FALL PRECAUTIONS IN PLACE. HOURLY ROUNDING FOR SAFETY.
--- NOTE | 2018-10-14 07:15 | NUR ---
ASSUMED CARE OF PT ASSESSED AND DOCUMENTED. PT IS ON CARDIAC MONITER TRACING SR HR 94. PT IS A&O WITH NO C/O PAIN. VSS WNL. PT IS AFEBRILE. SHE CONT ON 2L OF 02 SAT 97%. PT HAS TRACE EDEMA IN BLLE'S. BED IS IN LOW POSITION CALL LIGHT IS IN REACH. WM.
[2018-10-14 08:00] VITALS: BP 151/63
--- NOTE | 2018-10-14 09:24 | CON ---
[address] [address] CONSULTATION Name: KAMRON RIVERA Room: [address] IN .R.#: [id number] Admission: 10/12/18 Attend Phys: Maggie Taylor MD Discharge: Date of : 45 Report #: [id number] THIS REPORT FOR: //name// CC: Chon Taylor DATE OF SERVICE: 10/13/2018 REASON FOR CONSULTATION: Anemia. SUBJECTIVE: A 73-year-old female who has been evaluated because of anemia. She presented with shortness of breath. However, she has been sick recently. The patient denies any cough or fever or chills. The patient was found to be anemic at hemoglobin of 8.2. Prior to that on 09/26/2018, her hemoglobin was 6.7, hemoglobin was normal in 04/2016. However, her creatinine is 1.3 and her TIBC was low. Ferritin was 165. Her saturation was elevated at 92. REVIEW OF SYSTEMS: All systems have been reviewed, was negative except the above. PAST MEDICAL HISTORY: Significant for hypertension, COPD, previous PE. She had coronary artery disease. PAST SURGICAL HISTORY: Appendectomy, recent cholecystectomy and stent. MEDICATIONS: Per admission list. ALLERGIES: She is allergic to MOLD, POLLEN AND DUST. SOCIAL HISTORY: No smoking, alcohol abuse, no drug abuse. FAMILY HISTORY: Noncontributory. PHYSICAL EXAMINATION: VITAL SIGNS: Temperature 36.9, pulse is 91, respirations 18, blood pressure is 140/72, SpO2 was 100 with 2 liters. GENERAL: The patient was sitting in chair, was not in acute distress. LUNGS: Clear to auscultations bilaterally. HEART: With a regular rate and rhythm. S1, S2 within normal limits. ABDOMEN: Soft, nontender, nondistended, bowel sounds positive. Chest x-ray was negative. Labs as mentioned above. ASSESSMENT AND PLAN: A 73-year-old female who has been evaluated because of anemia. Her hemoglobin has been significantly low since 06/2018[place] [address] CONSULTATION Name: KAMRON RIVERA Room: [address] IN [facility].#: [id number] Admission: 10/12/18 Attend Phys: Maggie Taylor MD Discharge: Date of : 45 Report #: [id number] She received blood transfusion today. I would like to obtain HFE mutation to rule out any possibility of hemochromatosis. We will obtain further workup including B12, folate, serum level, serum electrophoresis, peripheral blood smear and hemolysis parameters. We will follow the patient during hospitalization. <ELECTRONICALLY SIGNED> By: Robbi Rossi MD 10/14/18 0924 1706 [id number] Rossi MD /nt
--- NOTE | 2018-10-14 11:22 | CON ---
[address] [address] CONSULTATION Name: KAMRON RIVERA Room: [address] IN M.R.#: [id number] Admission: 10/12/18 Attend Phys: Maggie Taylor MD Discharge: Date of : 45 Report #: [id number] THIS REPORT FOR: //name// CC: Chon Taylor REASON FOR CONSULTATION: Dyspnea. HISTORY OF PRESENT ILLNESS: This is a 73-year-old female patient with history of COPD. She is steroids and oxygen dependent and actually she sees us in the office. She was recently at this facility with COPD exacerbation and anemia. She was discharged home after she received blood. She comes back with progressive shortness of breath. She was found to be anemic and her hemoglobin upon presentation was 7.4. She received 2 units of blood and she reports significant improvement in her symptoms. She denied any cough, wheezes, sputum production. She denied any cold symptoms. She denied any sore throat. She denied any runny nose. She denied any sick contacts. She remains on her home medication. She told me she does not think it is COPD because it does not feel like it and her breathing has improved after she received the blood transfusion. The patient follows at our office and her last FEV1 was 0.85 liters at 40% predicted, consistent with very severe COPD. She is currently on 10 mg prednisone daily. She is on Advair and nebulization treatment at home. PAST MEDICAL HISTORY: Very severe chronic obstructive pulmonary disease, chronic respiratory failure, on home oxygen. She is steroid dependent. She has prior history of recurrent urinary tract infection, hyperlipidemia. PAST SURGICAL HISTORY: Appendectomy, fracture right arm in June, history of hypogammaglobulinemia. SOCIAL HISTORY: , retired, ex-smoker. FAMILY HISTORY: Positive for COPD and dementia. REVIEW OF SYSTEMS: The patient denied any history of bleeding from any orifice. No hematemesis, no melena, no blood in the stool, no blood in the urine. She has tiredness, fatigue, but no abdominal pain, no back pain, no chest pain. No wheezing. The rest of the review system was negative, 12-point reviewed with the patient. PHYSICAL EXAMINATION: VITAL SIGNS: She was on 2 liter oxygen, blood pressure 150/63, pulse rate of 89, afebrile. GENERAL: Pale. HEAD: Normocephalic, atraumatic. ORAL CAVITY: Moist mucous membrane. Mallampati of 2. EENT: Pupils reactive to light. External ears [place] [address] CONSULTATION Name: KAMRON RIVERA Room: [address] IN [facility].#: [id number] Admission: 10/12/18 Attend Phys: Maggie Taylor MD Discharge: Date of : 45 Report #: [id number] NECK: Full range of movement. CHEST: Diminished air movement bilaterally. No definite wheezes. On oxygen, prolonged expiratory phase. HEART: S1, S2, no murmur. ABDOMEN: Benign, soft, lax, nontender, positive bowel sounds. No masses felt. LOWER EXTREMITIES: Some bruises noted. No rash. No edema noted. No calf tenderness. NEUROLOGIC: Moving 4 extremities spontaneously. No focal weakness. Awake, alert, oriented. LYMPHATICS: No palpable lymph nodes. LABORATORY DATA: Her chest x-ray did not show acute process. Her blood work demonstrated hemoglobin 7.5 upon hospitalization, is 8.2 today; white blood count 10.1, platelets 185. Bicarbonate of 31, creatinine of 1.3, BUN of 70, potassium 4.9, sodium 144. Her INR is 1. IMPRESSION: 1. Chronic respiratory failure. 2. Chronic obstructive pulmonary disease. 3. Anemia. 4. Possible gastrointestinal bleed. The patient currently at her baseline respiratory status, she is not in chronic obstructive pulmonary disease exacerbation. I would continue the patient on the current nebulization treatments and inhaled steroids, monitor fluid status and avoid fluid overload with blood transfusion. Note that she is on diuretics. I would just keep her on her home dose of prednisone and in case of stressful procedure consider a stress dose of steroids. Thank you for the consult. <ELECTRONICALLY SIGNED> By: Kellie Heck MD 10/14/18 1122 1031 [id number] Heck MD /nt
[2018-10-14 12:00] VITALS: BP 127/53
[2018-10-14 12:01] VITALS: BP 151/63
--- NOTE | 2018-10-14 13:20 | NUR ---
PT D/C'D TO HOME. ALL CONSULTS OK WITH D/C. EDUCATION GIVEN RE FOLLOW-UPS, MEDICATIONS, AND DRS ORDERS. IV AND CARDIAC MONITER D/C'D. ALL BELONGINGS PACKED UP AND LEFT WITH PT ACCOMPANIED BY STAFF.
[2018-10-14 15:13] LABS: KAPPA FREE LIGHT CHAINS 9.3 mg/L (3.3-19.4); LAMBDA FREE LIGHT CHAINS 10.3 mg/L (5.7-26.3)
[2018-10-15 16:10] LABS: GLOBULIN TOTAL 1.6 g/dL (2.2-3.9); M-SPIKE Not Observed g/dL (Not Observed)
== END 2018-10-14 13:22 | disposition home or self-care (01) | DRG 190 ==
LOC: M.ERS 19:14 → M.2W 20:18 → M.TBA-ER 20:18 → M.2W 21:30
PROVIDERS: Emergency Medicine; Internal Medicine; ADMIT Internal Medicine
PROC: 30233N1 Transfusion of Nonautologous Red Blood Cells into Peripheral Vein, Percutaneous Approach (ICD-10-PCS; principal; 2018-10-12)
DX: J44.1 Chronic obstructive pulmonary disease with (acute) exacerbation (principal); K31.811 Angiodysplasia of stomach and duodenum with bleeding; J96.10 Chronic respiratory failure, unspecified whether with hypoxia or hypercapnia; E44.1 Mild protein-calorie malnutrition; I10 Essential (primary) hypertension; D64.9 Anemia, unspecified; E78.5 Hyperlipidemia, unspecified; I25.10 Atherosclerotic heart disease of native coronary artery without angina pectoris; Z86.711 Personal history of pulmonary embolism; Z79.899 Other long term (current) drug therapy; Z91.048 Other nonmedicinal substance allergy status; Z91.09 Other allergy status, other than to drugs and biological substances; Z90.49 Acquired absence of other specified parts of digestive tract; Z79.52 Long term (current) use of systemic steroids; Z99.81 Dependence on supplemental oxygen; Z83.6 Family history of other diseases of the respiratory system; Z82.0 Family history of epilepsy and other diseases of the nervous system; Z87.891 Personal history of nicotine dependence; Z68.21 Body mass index [BMI] 21.0-21.9, adult

== ENCOUNTER → 2018-10-21 | Outpatient (CLI) | payer MEDICARE, BC ==
[~2018-10-21] MED LIST changes: +INCRUSE ELLI62.5 MCG INH; +OMEPRAZOLE40 MG PO
[2018-10-21 11:26] LABS: MCH 31.4 pg (26.0-34.0); MCHC 33.5 g/dL (28.0-37.0); MCV 93.7 fL (80.0-100.0); MPV 7.3 fl. (7.2-11.1); NUCLEATED RBCS 0 /100WBC; PLATELET COUNT* 272 thou/uL (150-400); RBC 1.98 mil/uL (4.20-5.00); RDW-CV 17.6 % (10.5-14.5); WBC 6.7 thou/uL (4.0-11.0)
[2018-10-21 11:37] LABS: HEMATOCRIT 18.5 % (37.0-47.0); HEMOGLOBIN 6.2 gm/dL (12.0-15.0)
[2018-10-21 11:42] LABS: ALBUMIN 2.8 g/dL (3.4-5.0); CALCIUM 8.5 mg/dL (8.5-10.1); CREATININE 1.4 mg/dL (0.6-1.3); POTASSIUM 4.8 mmol/L (3.5-5.1); TOTAL BILIRUBIN 0.2 mg/dL (<0.1-1.0); TOTAL PROTEIN 5.2 g/dL (6.4-8.2)
[2018-10-21 12:05] LABS: ABSOLUTE BASOPHILS 0.1 thou/uL (0.0-0.2); ABSOLUTE EOSINOPHILS 0.1 thou/uL (0.0-0.7); ABSOLUTE LYMPHOCYTES 0.3 thou/uL (0.8-5.3); ABSOLUTE NEUTROPHILS 6.2 thou/uL (1.6-8.1); METAMYELOCYTES 1 %; PLATELET ESTIMATE ADEQUATE
--- NOTE | 2018-10-24 12:48 | HEMONC ---
[address] [address] HEMATOLOGY ONCOLOGY NOTE Name: KAMRON RIVERA [id number] Admission: 10/21/18 Attend Phys: Robbi Rossi MD Discharge: Date of : 45 Report #: [id number] THIS REPORT FOR: //name// CC: Chon Rossi DIAGNOSIS: Anemia. SUBJECTIVE: The patient presented today as a hospital followup. She is still feeling tired and fatigued. I reviewed her blood work on 10/13/2018, her hemoglobin was 8.2. 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 Her iron studies showed increased iron saturations 92% with a ferritin of 165. I discussed these findings; however, her B12 was also on the low normal at 227. REVIEW OF SYSTEMS: All systems were reviewed. It was negative except the above. PAST MEDICAL, SOCIAL AND FAMILY HISTORY: Unchanged from previous visits; however, I reviewed with her EGD findings on 09/28 which showed a few nonbleeding angiodysplastic lesions in the duodenum, treated with APC. PHYSICAL EXAMINATION: VITAL SIGNS: Today blood pressure was 135/60, pulse is 83, respirations 24, temperature was 97.2, saturations 98% on room air. GENERAL: The patient was sitting in chair, was not in acute distress. LUNGS: Decreased breathing sounds bilaterally. HEART: Regular rate and rhythm. S1, S2 within normal limits. ABDOMEN: Soft, nontender, nondistended, bowel sounds positive. ASSESSMENT AND PLAN: A 63-year-old female who has been evaluated because of anemia. Her workup revealed that she has a normal electrophoresis. Her iron studies were adequate and even her iron saturations increased. 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 However, after June when she had her surgery, she started having significant anemia. EGD showed nonbleeding angiodysplastic lesion in the duodenum. She is supposed to have colonoscopy. The etiology of her anemia most likely is due to gastrointestinal bleed. Her iron studies are normal due to the fact that she had hemochromatosis. RECOMMENDATIONS: 1. I would like to wait for her CBC today and in 2 weeks if the patient is not recovering, the next step will be obtaining a bone marrow biopsy to rule out any possibility of MDS. 2. Also, I would like to replace her B12 since [place] [address] HEMATOLOGY ONCOLOGY NOTE Name: KAMRON RIVERA Room: [facility] Leeann#: [id number] Admission: 10/21/18 Attend Phys: Robbi Rossi MD Discharge: Date of : 45 Report #: [id number] 3. We will check occult blood stool to evaluate if the patient has any further bleeding since last time she had EGD. Followup based on her labs in 2 weeks. <ELECTRONICALLY SIGNED> By: Robbi Rossi MD 10/24/18 1248 1055 [id number] Rossi MD /nt
== END ==
LOC: M.RTH 10:15
PROVIDERS: Internal Medicine
DX: D50.9 Iron deficiency anemia, unspecified (principal)

== ENCOUNTER → 2018-10-22 | Outpatient (CLI) | payer MEDICARE, BC ==
[~2018-10-22] VITALS: Ht 162.6 cm; Wt 55.3 kg
[2018-10-22 09:11] VITALS: BP 115/48; BP 124/47
[2018-10-22 10:33] VITALS: BP 122/52
[2018-10-22 11:25] VITALS: BP 121/48; BP 138/52
[2018-10-22 13:16] VITALS: BP 121/48; BP 123/52; BP 135/56; BP 138/52
--- NOTE | 2018-10-22 15:45 | NUR ---
Pt came to PACU for transfusion of 2 units ADMINISTRATOR PESTICIDE. Pt arrived at 1050 and was transferred to cart. Pt had just undergone a Bone Marrow Biopsy in IR. 2x2 site on lower back is intact with no drainage noted. Pt recieved 2 units of ADMINISTRATOR PESTICIDE and tolerated transfusion well with no s/sx of reactions. Discharge papers as well as pre-education packge given and reviewed. Pt's son was with her for most of transfusion. Pt had IV dc'd from left AC at 1544. Assisted to family car via W/C to home at 1545.
--- NOTE | 2018-10-31 23:09 | PATH ---
[address] [address] PATHOLOGY RPT PROCEDURE Name: KAMRON HOFF [id number] Admission: 10/22/18 Date of : 45 Discharge: Report #: [id number] Path Case #: [id number] [facility] Accession Number: [id number] . 01 Material submitted: . PART A: BONE MARROW BIOPSY PART B: BONE MARROW CLOT PART C: BONE MARROW ASPIRATE SLIDES PART D: PERIPHERAL SMEAR PART E: BONE MARROW FLOW . 01 Clinical history: . A 73-year-old woman with anemia. . 02 Diagnosis: Bone marrow aspirate, biopsy, cell clot and peripheral blood: - Peripheral blood with severe normocytic anemia. - Normocellular to mildly hypercellular bone marrow with trilineage hematopoiesis, mild erythroid hyperplasia, mild dyspoiesis, and no evidence of lymphoma or acute leukemia. (See comment) - No stainable iron. (CLW:tonya; 10/23/2018) . . . . . Special studies report received from [facility], [address] [place] [address], [address], [place], [address], on case [id number], labeled with their number [id number], dated 10/23/2018. . Flow Cytometry: Hematologic Neoplasia Assessment . Clinical History Anemia . Indication for Study Evaluation for anemia . Specimen Bone Marrow Aspirate . Viability 91% (7AAD exclusion) . Interpretation Bone Marrow Aspirate: No significant immunophenotypic [place] [address] PATHOLOGY RPT PROCEDURE Name: KAMRON HOFF Room: [facility]#: [id number] Admission: 10/22/18 Date of : 45 Discharge: Report #: [id number] Path Case #: [id number] Comments Myeloproliferative and myelodysplastic disorders cannot be categorically excluded by flow cytometric analysis. Correlation with available clinical, laboratory, and morphologic data is recommended. . Populations Analyzed Myeloid Blasts: 0.5% No significant immunophenotypic abnormalities Lymphocytes: 7% B-cells: 0.2%, polytypic/polyclonal sIg light chain pattern T-cells: no significant abnormalities of the markers tested CD4+ T-cells: 2.5% (including 0.6% CD57+ cells) CD8+ T-cells: 2.6% (including 1.5% CD57+ cells) CD4:CD8: 1.0 NK cells: 0.8% Neutrophilic Cells: 87% No significant abnormalities of the markers tested Monocytic Cells: 3% No significant abnormalities of the markers tested Eosinophils: 1.6% No relative increase Basophils: 0.2% No relative increase Plasma Cells: 0.1% Few detected; no overt abnormalities of the surface markers tested (plasma cells are typically underrepresented by flow cytometry; cytoplasmic light chains were not assessed) CD45 Negative 0.6% No significant reactivity with the markers Events/Debris: tested (may represent unlysed red blood cells, erythroid precursors, platelets, debris, etc.) (erythroid precursors may be underrepresented due to sample lysis/processing) . Morphologic Evaluation A slide was reviewed for quality assurance manager purposes only. . Specimen Description Total Cell Yield: 9.16 X 10 and 6 . Reagent(s) Used CD2, CD3, CD4, CD5, CD7, CD8, CD10, CD11b, CD13, CD14, CD16, CD19, CD20, CD33, CD34, CD38, CD45, CD56, CD57, CD64, CD117, HLA-DR, kappa, lambda . at [facility]. Vijay Weir MD Pathologist . Intended Use Flow cytometry is optimally used to immunophenotypically characterize abnormal populations when they are detected. [place] [address] PATHOLOGY RPT PROCEDURE Name: KAMRON HOFF Room: [facility] KITTY Bradshaw#: [id number] Admission: 10/22/18 Date of : 45 Discharge: Report #: [id number] Path Case #: [id number] results do not exclude lymphoma or neoplasia. Possible false negative flow cytometry results may occur in, but are not limited to, the following: neoplastic cells in Hodgkin lymphoma are not typically adequately represented by routine clinical flow cytometry; neoplastic cells may be lost or inadequately represented due to degeneration, sample processing, sampling artifact, or patchy involvement; plasma cells are typically underrepresented by flow cytometry; immature cells/blasts may be underrepresented due to hemodilution; myeloproliferative disorders and low grade myelodysplasia may not have immunophenotypic abnormalities or increased blasts. Correlation with all available clinical, laboratory, and morphologic data is always necessary to assess for the possibility of false negative flow cytometry results and to establish a diagnosis. Each marker in this analysis was used to assess for potential antigenic abnormalities or to evaluate detected abnormalities. . Disclaimer(s) This test was performed at [facility]. at [address] [facility] [address], [place], [address] - Fitter Up: Tommie Turk MD. [facility] is a business unit of [employer], a wholly-owned subsidiary of [employer]. . Any image or images that accompany this report are community relations representative images only and should not be used to render a diagnosis. . This test was developed and its performance characteristics determined by [facility]. It has not been cleared or approved by the Food and Drug Administration (FDA). The FDA has determined that such clearance or approval is not necessary. . For inquiries, the physician may contact Lab: [phone] . A complete copy of the report is on file. . Professional services performed by [facility]. at [address], [place] [address]. Technical services performed by [facility]. at [address], [place] [address]. . (AMJ 10/23/2018) . QMS/10/23/2018 . 02 Comment: Overall the bone marrow is normocellular to mildly hypercellular for the patient's age with trilineage hematopoiesis, mild erythroid hyperplasia, mild dyspoiesis, and no evidence of lymphoma or acute leukemia. The [address] [place] [address] PATHOLOGY RPT PROCEDURE Name: KAMRON HOFF Room: [facility].#: [id number] Admission: 10/22/18 Date of : 45 Discharge: Report #: [id number] Path Case #: [id number] dyspoiesis is mild and while it could possibly represent a low-grade myelodysplastic syndrome, it does not meet the morphologic criteria for myelodysplasia. Of note, no stainable iron is identified. Correlation with clinical history, additional laboratory data and cytogenetics is recommended. (CLW:tonya; 10/23/2018) . 02 Addendum: . Special studies report received from [facility], [address] [place] [address], [address], [place], [address], on case [id number], labeled with their number [id number], dated 10/31/2018. . Cytogenetic Analysis Report . RESULT: Normal Female Karyotype 46,XX(20) . Specimen Type: Bone Marrow . Indication for Study: Anemia . INTERPRETATION: Cytogenetic analysis revealed no evidence of an acquired clonal abnormality. These results should be interpreted in the context of clinical and histopathologic findings. . See Flow Cytometry report [id number] for further information. . Number of Metaphases Counted: 20 Banding: G-banding Number of Metaphase Cells Analyzed: 20 Band Level: 400 Number of Metaphase Cells Karyotyped: 2 Cultures Established: 24/48 hour unstimulated . . at [facility]. Magali Rodriguez, PhD, FAC Director of Clinical Cytogenetics . Disclaimer This Test was performed by [facility]. at [address], [facility] [address], [place], [address]. . [facility] is a business unit of [employer] a wholly-owned subsidiary of [employer]. . . Any image(s) that accompany this report is/are a community relations representative image(s) [place] [address] PATHOLOGY RPT PROCEDURE Name: KAMRON HOFF Room: [facility]#: [id number] Admission: 10/22/18 Date of : 45 Discharge: Report #: [id number] Path Case #: [id number] only and should not be used to render a diagnosis. . Based on the resolution of this study, standard cytogenetic methodology does not routinely detect subtle or sub-microscopic rearrangements or low level mosaicism. . A complete copy of the report is on file. . Professional services performed by [facility]. at [address], [place] [address]. Technical services performed by [facility] at [address], [place] [address]. . . (AMJ 10/31/2018) . AZJ/10/31/2018 Addendum Electronically Signed by Marisa Murillo MD, Pathologist . 02 Electronically signed: . Marisa Murillo MD, Pathologist NPI- [id number] . 01 Gross description: . A. The specimen is received in formalin, labeled "Kamron Hoff, core". Received are three needle cores of light villegas bone ranging in length from 0.4 to 0.6 cm, with each measuring 0.3 cm in diameter. The specimen is submitted entirely in cassette A1, following light decalcification. . B. The specimen is received in formalin, labeled "Kamron Hoff, clot". Received is a moderate amount of coagulum measuring 3.3 x 1.3 x 1.0 cm in greatest dimensions. The specimen is submitted entirely in cassettes B1 through B6. (CAA; 10/22/2018) QAC/QAC . 02 Microscopic: . CBC Data (10/22/18): WBC 6,700 /uL, RBC 1.98, hemoglobin 6.2 g/dL, hematocrit 18.5%, MCV 93.7 fL, MCH 31.4 pg, MCHC 33.5 g/dL, RDW 17.6%, and platelet count 272,000 /uL. White blood cell differential: segs 90%, bands, 2%, lymphs 5%, eos 1%, basos 1%, and metas 1%. . Peripheral Blood Smear: Cytomorphological examination of the Milligan's stained peripheral blood smear confirms the provided data. Red blood cells show severe normocytic anemia with mild anisopoikilocytosis. Rare acanthocytes are noted. White blood cells are predominantly granulocytes and lymphocytes. Granulocytes are predominantly segmented neutrophils with mild reactive changes. There is no significant dyspoiesis. There is a mild left shift with a rare [facility] [address] [place] [address] PATHOLOGY RPT PROCEDURE Name: KAMRON HOFF Room: [facility]#: [id number] Admission: 10/22/18 Date of : 45 Discharge: Report #: [id number] Path Case #: [id number] metamyelocyte noted on scanning. No blasts or Nohelia rods are seen. Lymphocytes are predominantly small, round, and mature appearing with condensed chromatin and scant cytoplasm with admixed large granular lymphocytes. On scanning, no markedly atypical lymphoid cells are seen. Monocytes are mature. Platelets are adequate in number and mainly normal in morphology with rare larger platelets noted. . Aspirate Smears: Cytomorphological examination of the Milligan's stained aspirate smears show no intact spicules present. Hematopoietic progenitor cells are identified; therefore, this may represent a mildly hemodilute sample. Cytomorphological examination of Milligan's stained touch imprints show progenitor cells and megakaryocytes present. The myeloid to erythroid ratio is 1.5:1. Full myeloid maturation is identified and is without significant dyspoiesis. Erythroid maturation is mildly dyserythropoietic with irregular nuclear contours, mitotic figures and nuclear cytoplasmic dyssynchrony. In a 500 cell differential, there are 1% blasts (no Nohelia rods are seen), 55% more differentiated myeloids, 36% erythroid precursors, and 8% lymphocytes. Megakaryocytes are proportional in number and both normal and abnormal in morphology with variable sizes in nuclear abnormalities. No lymphoid aggregates or markedly atypical lymphoid cells are seen. Plasma cells are without atypia. Iron stain of the aspirate smear shows 0/4+ iron positivity. While no intact spicules are present, scattered progenitor cells are noted. No ringed sideroblasts are identified. . Core Biopsy and Cell Clot: The decalcified bone marrow core biopsy is small but adequate. The bone marrow is normocellular to mildly hypercellular with an overall cellularity of approximately 40%. The myeloid to erythroid ratio is 1:1. Myeloid maturation is without significant dyspoiesis. Erythroid maturation is mildly dyserythropoietic. Megakaryocytes are normal in number and both normal and abnormal in morphology. No lymphoid aggregates or markedly atypical lymphoid cells are seen. Bony trabeculae and blood vessels are unremarkable. The cell clot has occasional spicules present that are similar in cellularity and differential morphology as previously described. . Properly controlled special stains are performed. . Block A1 Iron: 0/4+ iron positivity. Reticulin: No significant reticulin fibrosis. . Block B Iron (B1, B2, B3, B4, B5): 0/4+ iron positivity with occasional spicules present. . Flow Cytometry: [place] [address] PATHOLOGY RPT PROCEDURE Name: KAMRON HOFF Room: [facility]#: [id number] Admission: 10/22/18 Date of : 45 Discharge: Report #: [id number] Path Case #: [id number] Flow cytometric immunophenotypic analysis was performed at [facility]. The diagnosis is "no significant immunophenotypic abnormalities detected." There are 7% lymphocytes. Of the lymphocytes, there are 0.2% polytypic/polyclonal B-cells. T-cells have a CD4/CD8 ratio of 1.0 and no aberrant T-cell antigen expression. There are 0.5% myeloid blasts with no significant immunophenotypic abnormalities. Please see separate flow cytometry report from [facility] ([id number]). . Cytogenetics Analysis: Cytogenetic chromosomal analysis is pending at [facility] ([id number]). . (CLW:tonya; 10/23/2018) . . 02 Pathologist provided ICD-10: D64.9, D75.89 . 02 CPT . 971241, 910059, 719819, 828196, 247731, 193854, 973188, 662908, 333081, 263951, 825062 Specimen Comment: A courtesy copy of this report has been sent to Specimen Comment: [phone], . Specimen Comment: Report sent to and Performed at: 01 [facility] [address] [place] [id number] MD Ayo Diaz MD Phone: [phone] Performed at: 02 [facility] [address] [id number] MD Jimbo Noble MD Phone: [phone]
== END ==
LOC: M.INFUS 08:30
DX: D50.9 Iron deficiency anemia, unspecified (principal)

== ENCOUNTER → 2018-10-27 | Day surgery (SDC) | payer MEDICARE, BC ==
[2018-10-27 14:32] VITALS: BP 128/50; BP 134/53; BP 148/55
[2018-10-27 15:26] VITALS: BP 125/50; BP 140/62; BP 147/60
== END | disposition home or self-care (01) ==
LOC: M.SUR 09:04
DX: K57.30 Diverticulosis of large intestine without perforation or abscess without bleeding (principal); K64.8 Other hemorrhoids; K64.4 Residual hemorrhoidal skin tags; K22.2 Esophageal obstruction; K44.9 Diaphragmatic hernia without obstruction or gangrene; I10 Essential (primary) hypertension; E78.5 Hyperlipidemia, unspecified; I73.9 Peripheral vascular disease, unspecified; D64.9 Anemia, unspecified; J44.9 Chronic obstructive pulmonary disease, unspecified; Z87.891 Personal history of nicotine dependence; Z90.49 Acquired absence of other specified parts of digestive tract; Z98.890 Other specified postprocedural states; Z86.718 Personal history of other venous thrombosis and embolism; Z79.01 Long term (current) use of anticoagulants

== ENCOUNTER → 2018-11-03 | Outpatient (CLI) | payer MEDICARE, BC ==
[2018-11-03 09:51] LABS: ABSOLUTE BASOPHILS 0.1 thou/uL (0.0-0.2); ABSOLUTE EOSINOPHILS 0.1 thou/uL (0.0-0.7); ABSOLUTE LYMPHOCYTES 1.2 thou/uL (0.8-5.3); ABSOLUTE MONOCYTES 0.8 thou/uL (0.0-1.2); ABSOLUTE NEUTROPHILS 5.6 thou/uL (1.6-8.1); BASOPHILS 1.1 %; EOSINOPHILS 0.8 %; HEMATOCRIT 30.4 % (37.0-47.0); HEMOGLOBIN 10.1 gm/dL (12.0-15.0); LYMPHOCYTES 15.1 %; MCH 30.3 pg (26.0-34.0); MCHC 33.2 g/dL (28.0-37.0); MCV 91.4 fL (80.0-100.0); MPV 7.2 fl. (7.2-11.1); NUCLEATED RBCS 0 /100WBC; PLATELET COUNT* 292 thou/uL (150-400); RBC 3.33 mil/uL (4.20-5.00); WBC 7.6 thou/uL (4.0-11.0)
== END ==
LOC: M.LAB 09:37
PROVIDERS: Internal Medicine
DX: D50.9 Iron deficiency anemia, unspecified (principal)

== ENCOUNTER → 2018-11-05 | Outpatient (CLI) | payer MEDICARE, BC ==
[2018-11-05 12:32] VITALS: BP 151/60
== END ==
LOC: M.INFUS 04:02
DX: D50.9 Iron deficiency anemia, unspecified (principal)

== ENCOUNTER → 2018-11-18 | Outpatient (CLI) | payer MEDICARE, BC ==
--- NOTE | ~2018-11-18 | HEMONC ---
[address] [address] HEMATOLOGY ONCOLOGY NOTE Name: KAMRON RIVERA [id number] Admission: 11/18/18 Attend Phys: Robbi Rossi MD Discharge: Date of : 45 Report #: [id number] THIS REPORT FOR: //name// CC: Chon Rossi DATE OF SERVICE: 11/18/2018 DIAGNOSES: Iron deficiency anemia/hemochromatosis. SUBJECTIVE: A 73-year-old female who presented today as a followup after she had a bone marrow biopsy, which showed no evidence of MDS; however, she had no stainable iron stores. Her hemoglobin was 6.2. She received a blood transfusion and I arranged for 2 doses of IV iron. She is scheduled for the next dose tomorrow. Followup hemoglobin on a weekly basis from 12/04/2018, 11/10/2018 and today showed a significant trend in her hemoglobin and now it is 10.6. The patient stated that she is feeling more energetic, less fatigue, less shortness of breath. REVIEW OF SYSTEMS: All systems were reviewed. It was negative except the above. PAST MEDICAL, SOCIAL AND FAMILY HISTORY: Unchanged from previous visits. PHYSICAL EXAMINATION: VITAL SIGNS: Today blood pressure is 135/60, pulse is 83, respirations 24, sat is 98%, temperature is 97.2. GENERAL: The patient was sitting in chair, was not in acute distress. LUNGS: Clear to auscultations bilaterally. HEART: Regular rate and rhythm. S1, S2 within normal limits. ABDOMEN: Soft, nontender. LABORATORY DATA: Today WBC 7.8, hemoglobin 10.6, platelets 204. Her ferritin on 10/13/2018 165. ASSESSMENT AND PLAN: 1. A 73-year-old female who has been diagnosed because of iron deficiency anemia due to gastrointestinal bleed. 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 At this point, the patient had a significant anemia, required blood transfusion. I arranged for IV iron due to her active gastrointestinal bleed and her hemoglobin continues to rise, we will obtain a CBC every 2 weeks. We will arrange for second dose of Feraheme. We [place] [address] HEMATOLOGY ONCOLOGY NOTE Name: KAMRON RIVERA Room: [facility] Leeann#: [id number] Admission: 11/18/18 Attend Phys: Robbi Rossi MD Discharge: Date of : 45 Report #: [id number] closely. 2. The patient is having a GI workup. We will wait for recommendations. By: 0944 [id number] Rossi MD /nt
== END ==
LOC: M.RTH 04:00
DX: D50.9 Iron deficiency anemia, unspecified (principal)

== ENCOUNTER → 2018-11-18 | Outpatient (CLI) | payer MEDICARE, BC ==
[2018-11-18 09:40] VITALS: BP 157/61
[2018-11-18 10:30] VITALS: BP 150/72
== END ==
LOC: M.INFUS 11-14 10:30
DX: D50.9 Iron deficiency anemia, unspecified (principal)

== ENCOUNTER → 2018-12-30 | Outpatient (CLI) | payer MEDICARE, BC ==
--- NOTE | 2019-01-02 08:48 | HEMONC ---
[address] [address] HEMATOLOGY ONCOLOGY NOTE Name: NICOLEKAMRONMarsha VELÁSQUEZ Room: [facility].#: [id number] Admission: 12/30/18 Attend Phys: Robbi Rossi MD Discharge: Date of : 45 Report #: [id number] THIS REPORT FOR: //name// CC: Chon Rossi DIAGNOSIS: Iron deficiency anemia/hemochromatosis. INDICATIONS: The patient presented today after she received IV iron here. Hemoglobin actually improved significantly to the level of 12.7. I reviewed the trend of her hemoglobin back in 10/27/2018, it was 6.9. Also, her iron studies showed improvements in her ferritin, however, it continues to be within normal range. The patient stated that she is feeling much better. She denies any blood in the stool. REVIEW OF SYSTEMS: All systems reviewed. It was negative except the above. PAST MEDICAL, SOCIAL AND FAMILY HISTORY: Unchanged from previous visit. PHYSICAL EXAMINATION: VITAL SIGNS: Today, blood pressure is 177/65, pulse is 79, respirations 20, temperature is 98.1, saturations 96% on room air. GENERAL: The patient was sitting in chair, was not in acute distress. LUNGS: Decreased breathing sounds bilaterally. HEART: Regular rate and rhythm. S1, S2 within normal limits. ABDOMEN: Soft, nontender, nondistended, bowel sounds positive. LABORATORY DATA: Today, WBC 9.4, hemoglobin 12.7, platelets 196. TIBC 238, ferritin today is 182. ASSESSMENT AND PLAN: A 73-year-old female who has been diagnosed with iron deficiency anemia. She had angiodysplasia of the duodenum, which probably could be a source of blood loss. The patient received IV iron. Her hemoglobin improved significantly in the last couple of months. Today, hemoglobin continues to be within normal range. Ferritin continues to be within normal range. At this point, I would like to monitor the patient. In the settings of her hemochromatosis, I think the predominant picture right now is more related to blood loss. We will continue her ferritin and saturation studies every month and we will follow up in 3 months. <ELECTRONICALLY SIGNED> By: Robbi Rossi MD 01/02/19 0848 [id number] Rossi MD /nt
== END ==
LOC: M.RTH 04:49
DX: D50.9 Iron deficiency anemia, unspecified (principal); K31.819 Angiodysplasia of stomach and duodenum without bleeding

== ENCOUNTER → 2019-03-31 | Outpatient (CLI) | payer MEDICARE, BC ==
[2019-03-31 13:50] VITALS: BP 141/71
--- NOTE | 2019-04-06 13:33 | HEMONC ---
[place] [address] HEMATOLOGY ONCOLOGY NOTE Name: KAMRON RIVERA Room: [facility].#: [id number] Admission: 03/31/19 Attend Phys: Robbi Rossi MD Discharge: Date of : 45 Report #: [id number] THIS REPORT FOR: //name// CC: Chon Rossi DATE OF SERVICE: 03/31/2019 DIAGNOSIS: Iron deficiency anemia/hemochromatosis. SUBJECTIVE: The patient presented today as a 3-month followup. She reported that her energy level has been stable; however, she reported mild fatigue. I reviewed her hemoglobin for the last 3 months since December 2018, which showed stable, ranging between 12.1-12.5. In addition to that, she had ferritin level, which reflects her iron stores have been stable on the last 4 months from 119 to 99 ng/mL. The patient is in the process of having a Vascular Surgery evaluation for possible surgery. REVIEW OF SYSTEMS: All systems were reviewed. It was negative except the above. PAST MEDICAL, SOCIAL, AND FAMILY HISTORY: Unchanged from previous visit. PHYSICAL EXAMINATION: VITAL SIGNS: Blood pressure 164/65, pulse 80, respirations 20, sat 93% on room air, temperature is 97.2. GENERAL: The patient was sitting in chair, was not in acute distress. LUNGS: Decreased breathing sounds bilaterally. No crackles or wheezing. 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 At the same time, the patient developed a blood loss due to angiodysplasia in her duodenum. She ended up with iron deficiency. The patient was given intravenous iron and her hemoglobin has been stable for the last 3 months. Her ferritin continues to have a very slight trend over the last 4 months; however, she continues to be within normal range. Plan is to continue to monitor CBC and iron studies every 4 weeks. The patient is in the process of having Vascular Surgery. I would like to have a low threshold to replace her iron. We will follow up in 3 months. Every 4 weeks lab check. <ELECTRONICALLY SIGNED> By: Robbi Rossi MD 04/06/19 1333 1135 0007Robbi Rossi MD /nt
== END ==
LOC: M.RAD 05:47 → M.RTH 05:47
DX: E83.119 Hemochromatosis, unspecified (principal)

== ENCOUNTER → 2019-04-29 | Outpatient (CLI) | payer MEDICARE, BC ==
[~2019-04-29] MED LIST changes: -ATORVASTATIN CA40 MG PO; -DUONEB 2.5-0.5 M3 ML INH; +IPRAT-ALBUT 0.5-3 ML INH; +LIPITOR40 MG PO; -MUCINEX TA600 MG/TA2 PO; +MUCUS RELIEF600 M1 PO
== END ==
LOC: M.RAD 09:48
DX: R13.13 Dysphagia, pharyngeal phase (principal); J44.1 Chronic obstructive pulmonary disease with (acute) exacerbation; I10 Essential (primary) hypertension; E78.5 Hyperlipidemia, unspecified

== ENCOUNTER → 2019-06-30 | Outpatient (CLI) | payer MEDICARE, BC ==
--- NOTE | 2019-07-01 12:15 | HEMONC ---
[address] [address] HEMATOLOGY ONCOLOGY NOTE Name: KAMRON RIVERA Room: [facility].#: [id number] Admission: 06/30/19 Attend Phys: Robbi Rossi MD Discharge: Date of : 45 Report #: [id number] THIS REPORT FOR: //name// CC: Chon Rossi DATE OF SERVICE: 06/30/2019 CLINIC NOTE REASON FOR CONSULTATION: Iron-deficiency anemia/hemochromatosis. SUBJECTIVE: The patient presented today as followup visit. She continues to have a good level of energy. She denies any acute complaints. No black stool. No nausea, no vomiting. I reviewed her iron studies and hemoglobin, which continues to be stable since she received intravenous iron. In 10/2018, her hemoglobin was 6.9 and since December until today, her hemoglobin remains to be within normal range. Also, her ferritin level has been monitored very closely for which continues to be within normal range. On 06/19, it was 58 ng/mL and prior to that in January, it was 119. REVIEW OF SYSTEMS: All systems were reviewed. It was negative except the above. PAST MEDICAL, SOCIAL, AND FAMILY HISTORY: Unchanged from last visit. PHYSICAL EXAMINATION: VITAL SIGNS: Today, blood pressure is 152/73, pulse 65, respirations 20, temperature is 97.9, saturations 96% on room air. GENERAL: The patient was sitting in chair, was not in acute distress. LUNGS: Clear to auscultations bilaterally. HEART: Regular rate and rhythm. S1, S2 within normal limits. ABDOMEN: Soft, nontender, nondistended, bowel sounds positive. ASSESSMENT AND PLAN: A 74-year-old female who has been diagnosed with iron deficiency anemia due to gastrointestinal blood, unclear etiology. At the same time, she was tested positive for hemochromatosis. At this point, hemoglobin remained stable. Her iron studies remain stable. I think at this point, the patient's iron stores within balance and they are adequate. I would like to continue to monitor the patient with labs every 2 months. We will follow up in 6 months. <ELECTRONICALLY SIGNED> By: Robbi Rossi MD 07/01/19 1215 [id number] Rossi MD /nt
== END ==
LOC: M.RTH 05:29
DX: D50.9 Iron deficiency anemia, unspecified (principal)

== ENCOUNTER → 2019-08-26 | Outpatient (CLI) | payer MEDICARE, BC | LOC: M.RAD 11:30 | DX: M51.36 Other intervertebral disc degeneration, lumbar region (principal); M41.86 Other forms of scoliosis, lumbar region; I70.90 Unspecified atherosclerosis; M54.42 Lumbago with sciatica, left side; Z88.8 Allergy status to other drugs, medicaments and biological substances ==

== ENCOUNTER → 2019-11-12 | Outpatient (CLI) | payer MEDICARE, BC | LOC: M.ULTRA 16:20 | DX: M79.89 Other specified soft tissue disorders (principal); R05 Cough; M47.814 Spondylosis without myelopathy or radiculopathy, thoracic region ==

== ENCOUNTER → 2019-12-15 | Outpatient (CLI) | payer MEDICARE, BC | LOC: M.CT 08:00 | DX: J43.1 Panlobular emphysema (principal); I10 Essential (primary) hypertension; E78.5 Hyperlipidemia, unspecified; M54.42 Lumbago with sciatica, left side; M54.41 Lumbago with sciatica, right side; I70.0 Atherosclerosis of aorta; I25.10 Atherosclerotic heart disease of native coronary artery without angina pectoris ==